=== PATIENT | male | born 1990 | race Caucasian/White ===

== ENCOUNTER → 2021-04-05 09:07 | Outpatient (CLI) | payer OTHER, SELFPAY | PROVIDERS: Referring Provider Physician Assistant; Visit Provider Physician Assistant | DX: Z11.52 Encounter for screening for COVID-19 (principal) ==

== ENCOUNTER 2022-05-01 08:00 | Outpatient (RCR) | payer OTHER, SELFPAY ==
--- NOTE | 2022-05-01 09:05 | BH.SGPN.GN ---
Behaviors/Verbalizations/Mental Status: [] Eye contact is good. Motor activity is appropriate. Appearance is casual. Speech is Appropriate. Mood is depressed/irritable. Affect is flat. Thoughts are linear and logical. No evidence of psychosis. Reviewed daily check in sheet and no reports of suicidal ideations or intent. Client Response/Progress/Benefit: [] Pt participated at times during the group discussion. Attentive. This was pt?s first day in [facility] and he briefly introduced him and his goals. States ? I had a pretty shitty summer? and entered [facility] to work on his ?depression?. His check-in was very brief however as noted above this was his first day in [facility]. Group was supportive and offered advice for his first day/week in the program. Benefited from group support, encouragement, and feedback. Will continue in [facility] to prevent decompensation, increase healthy coping, and improve functioning to return to work. Narrative Note: []
--- NOTE | 2022-05-01 10:05 | BH.SGPN.GN ---
Behaviors/Verbalizations/Mental Status: []Eye contact is good. Motor activity is appropriate. Appearance is casual. Speech is Appropriate. Mood is depressed and agitated. Affect is congruent. Thoughts are linear and logical. No evidence of psychosis. Client Response/Progress/Benefit: []Pt first day in IOP tx. He was an engaged participant in group discussions and remained attentive during psychoeducation, nodding as fellow participants shared. Participated with peers in experiential activity and provided some ideas to the group. Pt participated in an interactive discussion with peers in which they worked together to define what coping skills are. Pt shared that we often continue to engage in unhealthy means of coping because it becomes a habit. Group then identified unhealthy coping skills which included; lashing out, negative self-talk, isolating, substance abuse, avoidance, sleeping to escape, and distracting self with other?s problems. Shared struggling with using drugs to cope in the past. Psychoeducation on internal vs external coping skills. Benefited from increased awareness and education on the benefits of having both internal and external coping skills. Will continue in [facility] to promote healthy skill application, improve mood management, and prevent decompensation. Narrative Note: []
--- NOTE | 2022-05-01 12:07 | BH.COMM ---
Communication Note - Communication with Client Communication Note: Met with patient to complete initial paperwork. No significant changes since pre-admission screening. Completed [place] Suicide Screening. Moderate risk. Pt has hx of one prior suicide attempt, resulting in hospitalization approx. 7 years ago in which pt overdosed on heroine. Hx of prior high risk behaviors such as taking steroids. Reports current steroid use and is aware of health risks in doing so. Endorses passive thoughts of not caring if something happened to him or if he did not wake up, but not for the past 3 weeks. Denies any current plan or intent and reports his mother is a protective factor. Denies Hx of intentional self-harm. Pt denies hx of HI, plan or intent. Case discussed with Dr. Villafana with plan to admit to IOP level of care with dx of Bipolar 2 disorder F31.81
--- NOTE | 2022-05-02 08:55 | BH.SGPN.GN ---
Behaviors/Verbalizations/Mental Status: []Eye contact fair, casually dressed, motor activity appropriate, speech normal rate and tone, mood depressed and irritable, congruent affect, thoughts linear and intact, no evidence of delusions or hallucinations. Reviewed pt's symptom tracker, denies suicidal ideation, plan, or intent as of this date 05/02/22. Client Response/Progress/Benefit: []Pt responded well to session, attentive and nodding at times as other?s shared throughout. Pt reports feeling tired this morning and shared that he has been struggling with sleep recently which is an ongoing stressor. Current wins include not having any SI over the past three weeks, as well as recently discovering that his disability had been extended. Shared this has reduced stress about returning to work and noted not having any stressors today as a result. Pt appeared to benefit from reflecting on current positives. Recommended continued IOP tx to continue to improve healthy coping skills, reduce depressive sx, and further improve mood stability. Narrative Note: []
--- NOTE | 2022-05-02 11:05 | BH.SGPN.GN ---
Behaviors/Verbalizations/Mental Status: [] Client alert and oriented, casually dressed and appropriately groomed. Eye contact poor. Motor activity normal. Speech within normal limits. Affect flat, mood depressed. Head down on table at times. Thoughts linear and intact. no signs of delusions or hallucinations. Client Response/Progress/Benefit: [] Client passive participant AEB no contributions throughout group discussion. Client appeared more disengaged during group when compared to other group sessions. Client had head down at times throughout session. Group discussed the different boundary setting styles which included rigid, porous, and flexible. Minimal contributions in small group discussion of identifying the pros and cons of each boundary setting style. As a group discussed various strategies to set boundaries. Client did not share which boundary style she connects with the most. Seemed to benefit from increased awareness of how different boundary styles can impact mental health. Progress could be hindered by lack of participation in group. Client will continue IOP tx to challenged distortions, improve confidence, and prevent decompensation.
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
[2022-05-02 11:57] VITALS: BP 145/91; PULSE 75
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
--- NOTE | 2022-05-02 12:55 | BH.DR.ITP ---
Initial Treatment Plan Patient Information Visit Information: ADMISSION DATE: EXPECTED LOS: 4-6 weeks Problems/Symptoms Problem #1:: Mood instability with depression Symptom:: Sadness, biological disruption of sleep, hopelessness, worthlessness, anhedonia, passive thoughts of , recent passive suicidal ideation Problem #2:: Anxiety Symptom:: Worry, rumination
--- NOTE | 2022-05-03 09:00 | BH.SGPN.GN ---
Behaviors/Verbalizations/Mental Status: []Eye contact fair, casually dressed, motor activity appropriate, speech normal rate and tone, mood dysthymic, constricted affect, thoughts linear and intact, no evidence of delusions or hallucinations. Reviewed pt's symptom tracker, no indication of suicidal ideation or intent. Client Response/Progress/Benefit: [] Client respond well to session as evidenced by him listening attentively to others and openly sharing thoughts and feelings. Client identified mental positive as helping his mom with something she needed done. Client stated additional mental health positive as going to the gym this morning which he stated tends to improve his thoughts and mood. Client reported stressor is the thought of returning back to work because he finds it to be a toxic workplace. Client seemed to benefit from support from peers. Client to continue IOP to challenge distorted thoughts, increase use of healthy coping, and prevent decompensation.
--- NOTE | 2022-05-03 10:10 | BH.SGPN.GN ---
Behaviors/Verbalizations/Mental Status: []Pt alert and oriented, casually dressed and groomed. Eye contact good. Motor activity appropriate. Speech within normal limits. Affect constricted, mood irritable. Thoughts linear, logical, no signs of hallucinations or delusions. Client Response/Progress/Benefit: []Pt was an active participant AEB contributing to discussion, taking notes, and engaging in group activity. Connected with the topic of pitfalls and listened to group discussion on barriers that prevent from choosing a healthier path to mental wellness. Group worked together to identify examples of personal pitfalls which included; resentment/anger, shutting down, low motivation, making excuses, denial, distortions, and unhealthy coping. Pt identified self-doubt, not knowing what he wants, body dysphoria, and drug use as personal pitfalls that have inhibited progress in the past.? Pt benefited from group as pt learned to better identify potential barriers to improving mental health symptoms. Pt will continue IOP tx to improve mood stability, reduce negative thinking patterns, and improve daily functioning. Narrative Note: []
--- NOTE | 2022-05-03 11:12 | BH.SGPN.GN ---
Behaviors/Verbalizations/Mental Status: []Pt alert and oriented, casually dressed and groomed. Eye contact fair to good. Motor activity appropriate. Speech within normal limits. Affect congruent, mood agitated and depressed. Thoughts linear, logical, no signs of hallucinations or delusions. Client Response/Progress/Benefit: []Pt receptive of session, engaged throughout AEB pt actively listening and contributing to discussion when prompted, as well as taking notes.? Pt participated in the experiential activity and did well to communicate ideas with peers and manage emotions. Pt and group processed how the emotions and perspective of the group impacted the activity. Group worked together to identify different coping skills to help manage pitfalls. Pt identified pitfalls they struggle with such as self-doubt and all or nothing thinking. Pt plans to work on the pitfall of self-doubt by beginning to track his daily accomplishments. Benefited from identifying personal pitfalls and strategies to overcome these pitfalls. Will continue IOP tx to prevent decompensation, challenge distortions, and increase the use of healthy coping skills. Narrative Note: []
--- NOTE | 2022-05-08 09:00 | BH.SGPN.GN ---
Behaviors/Verbalizations/Mental Status: [] Eye contact is good. Motor activity is appropriate. Appearance is casual. Speech is Appropriate. Mood is depressed/irritable. Affect is full. Thoughts are linear and logical. No evidence of psychosis. Reviewed daily check in sheet and no reports of SI. Client Response/Progress/Benefit: [] Pt participated at times during group discussion. Distracted. Daily symptom tracker notes 2/5 for irritability and depression. Emotion for today is ?angry and defensive?. Mental health wins include preparing for an upcoming social event and reconnecting with an old friend. Discussed how these are beneficial to his mental health. Reports that he woke up at 4am this AM and could not get back to sleep. Stressed as this has been an ongoing issue for the past several months. When awake at 4am he begins to have negative thoughts which can lead to anger, frustration, and depression. ?It can ruin my whole day?. Group provided some feedback and suggestions as well as emphasized which was beneficial. Will continue in IOP to prevent decompensation, stabilize mood, and improve functioning to return to work Narrative Note: [] Behaviors/Verbalizations/Mental Status: [] Eye contact is good. Motor activity is appropriate. Appearance is casual. Speech is Appropriate. Mood is depressed/irritable. Affect is full. Thoughts are linear and logical. No evidence of psychosis. Reviewed daily check in sheet and no reports of SI. Client Response/Progress/Benefit: [] Pt participated at times during group discussion. Distracted. Daily symptom tracker notes 2/5 for irritability and depression. Emotion for today is ?angry and defensive?. Mental health wins include preparing for an upcoming social event and reconnecting with an old friend. Discussed how these are beneficial to his mental health. Reports that he woke up at 4am this AM and could not get back to sleep. Stressed as this has been an ongoing issue for the past several months. When awake at 4am he begins to have negative thoughts which can lead to anger, frustration, and depression. ?It can ruin my whole day?. Group provided some feedback and suggestions as well as emphasized which was beneficial. Will continue in IOP to prevent decompensation, stabilize mood, and improve functioning to return to work Narrative Note: []
--- NOTE | 2022-05-08 13:49 | BH.MDN_ITS ---
Multi-Disciplinary Note - Note 30-min Individual Time Started:: 11:30 Date: 05/08/22 Purpose of session/treatment goals addressed:: Met with patient to review current progress and symptoms. Used the session to identify treatment plan goals. Eye Contact:: Good Motor Activity:: Appropriate Appearance:: Casual Speech:: Appropriate Mood:: Depressed Affect:: Flat Thoughts:: Linear, Logical, No evidence of hallucinations/delusions noted Staff Interventions:: rapport building, treatment planning Client Response:: According to pt his depression has decreased since starting the IOP program. He and his GF are currently back together and he reports that things are going well. They has broken up over the summer which had contributed to his depression. During his depression he reported anhedonia, low energy, and being to worn out to care about things. With improved mood he has noticed an increase in anger, irritability, and anxiety because I'm caring about things again. He would like to focus on anger management noting that stressful environments such as work increase his anger and anxiety leading to bailing out of responsibilities. He remains on FMLA from work since 12/2021 due to his mental health and believes that getting his anger under control will help with his transition back to work. Other goals include stress management, anxiety reduction, and mood stability. Currently has limited coping skills. Only form of self-care with working out. Risks/Concerns:: no risks or concerns noted. Progress Toward Goals/Plan:: Progress noted per pt report. Consistent with IOP however limited engagement. Pt reports that if a group or topic doesn't resonate with him it has been a challenge to stay focused. Responds well to individual sessions. According to DSM-5 cross cutting scale he noted significant distress in not knowing what he wants out of life related to work, purpose, and future. This is something that he thinks about several times throughout the day and impacts his mood. He is unsure if he will return to his job citing several factors. We discussed a possible reduced schedule in the future and normalized possibility of finding other employment if he feels that is best decision. Pt was given task to begin to identify anger button and physiological signs of anger for next session. Will continue in IOP to prevent decompensation, increase d healthy coping, and improve functioning to return to work. Time Stopped:: 12:00
--- NOTE | 2022-05-08 13:49 | BH.MTP_ITS ---
Master Treatment Plan - Patient Information Program Physician:: Natalia Rush - Psychiatric Diagnoses Psychiatric Diagnoses:: 1. Bipolar 2 disorder (depression). 2. Generalized anxiety disorder Diagnosis Code(s):: F31.81 - Estimated LOS Estimated LOS (in weeks):: 6 Problem/Goal #1 - Problem/Goal #1 Stated Goal:: Client will increase mood stability and reduce depression, irritability, and passive thoughts of AEB self-report and reduction of scores on the depression, suicidal ideations, oskar, and anger domains of the DSM-5 cross cutting scales. Description of Barriers: Mental health stigma, long-standing anger mgmt issues, limited coping skills Functional Impact: Pt has been on FMLA due to mental health symptoms since 01/2022. - Objectives Objective #1 Stated Objective: Client will learn and utilize 2-3 healthy coping strategies to better manage depressive and mood symptoms. Interventions: Through individual and group counseling will teach client various coping strategies to increase mood stability. Client will learn various coping skills to manage his symptoms and give client tangible resources to use to regulate emotions. Therapist will use cognitive restructuring techniques and help client gain awareness of negative thoughts that reinforce depressive cycles Discharge Criteria: Able to identify and utilize 2-3 healthy coping strategies for mood management. Target Date: 06/12/22 Review Date: 05/23/22 Objective #2 Stated Objective: Client will identify 5 physical warning signs of anger and 5 ways to calm and manage anger Interventions: Through individual and group counseling will teach the client calming techniques as part of a tailored strategy for reducing chronic and acute physiological tension that accompanies the escalation of his/her angry feelings. Discharge Criteria: Able to identify physiological warning signs to anger, anger button, and 2-3 coping skills to manage anger in the moment. Target Date: 06/12/22 Review Date: 05/23/22 Problem/Goal #2 - Problem/Goal #2 Stated Goal:: Client will reduce overall frequency, intensity, and duration of anxiety to improve functioning AEB self-report and reduction in the anxiety domain of the DSM-5 cross-cutting scales. Description of Barriers: Mental health stigma, limited coping skills Functional Impact: Pt has been on FMLA due to mental health symptoms since 01/2022. - Objectives Objective #1 Stated Objective: Client will identify 2-3 cognitive distortions that lead to rumination and learn 2-3 ways to manage these thoughts to better manage anxiety as shown by reduced DSM-5 scores for anxiety. Interventions: Through individual and group counseling will provide education on the most common cognitive distortions and teach client the connection between thoughts, emotions, and feelings. Therapist will assist client in identifying, challenging, and replacing dysfunctional thoughts with positive, more realistic thoughts. Discharge Criteria: Able to identify 2-3 common cognitive distortions which impact pt's anxiety and 2-3 strategies to reframe and challenge these distortions. Target Date: 06/12/22 Review Date: 05/23/22 Objective #2 Stated Objective: Identify and implement 3-4 behavioral changes that could be made in workplace interactions to increase sense of confidence and competence in dealing with work responsibilities, stressors, irritability, and anxiety. Interventions: Through individual and group counseling will provide client with various strategies to clinical case manager conflict, apply assertive communication, and set healthy boundaries. Will develop a return to work plan to clinical case manager mental health struggles which may include returning to work on reduced schedule Discharge Criteria: Will have returned to work either on reduced or full-time schedule. Target Date: 06/12/22 Review Date: 05/23/22
--- NOTE | 2022-05-08 13:49 | BH.PSA ---
Source of Information - Presenting Problems/Circumstances Problems, Referral Source, Mental Status, Client: Pt was referred to [facility] by family due to decompensation since 12/2021. Mental health symptoms resulted in decreased functioning and inability to work. Psychiatric Presentation - Psych Issues & Need for Admission Psychiatric Issues:: Bipolar, Depression, anxiety, anger mgmt issues, passive thoughts of , panic attacks. Past Psychiatric History - MH Treatment Hx Treatment History: Just recently began counseling and psychiatric services since 12/2021. First hospitalization:: n/a Most recent hospitalization:: n/a Medication Trials:: Yes - refer to psych eval ECT Therapy:: No Age of first mental health symptoms: Pt reports depressive symptoms around the age of 11. Describe (age, circumstance, etc) any past hospitalizations: n/a Current providers for mental health treatment (counselor, psychiatrist, case finisher, etc.): Julio César Godwin- therapist, [facility]. Dr. Giuliano Rainey- PCP, [facility] [place] Development & Family of Origin - Childhood Significant Childhood Events: denies any significant childhood events. Denies any hx of abuse. - Family Who currently lives in your home?: Currently lives alone. Describe family composition:: Mother is alive and a very supportive person in pt's life. Pt's father is (cancer, 2019). Pt has one sister - Family History Family Hx of Psychiatric or AOD Problems: Bipolar- sister. Pt suspects many undiagnosed mental health conditions in the family as well as substance abuse issues. Ethnicity - Culture Do you identify yourself with any particular cultural, ethnic background, or community?: No - Sexuality Sexual Orientation: Heterosexual Spirituality - Mosque Do you currently identify with any organized rastafarian?: None - Beliefs Is there a particular form of support from this community you can use for your recovery?: No Mental Status - Memory Recent Memory: Fair Remote Memory: Fair - Concentration Concentration: Fair - Eye Contact Eye Contact: Good - Speech Speech: Soft - Thought Process Thought Process: Logical Insight: Fair Judgment: Fair Behavior: Agitated - Orientation Orientation: Time, Person, Place, Situation - Appearance Appearance: Appropriate - Mood Mood: Depressed, Irritable - Affect Affect: Flattened Suicide Assessment - Suicidal Ideation Have you ever felt like hurting yourself?: Yes Please explain:: Has had a mixture of passive thoughts of , survival ambivalence, and fleeting SI w/o plan or intent since 12/2021. Were you using ETOH/drugs at the time?: No Suicidal Intentional Rating Scale (SIRS): Suicidal thoughts (past) - Had an OD on heroin in 2014. Physician Notification: If Active suicidal thoughts/Will not contract for safety is checked, contact physician and document in the Physician Notification section below. Violent Behavior/Abuse History - Homicidal Ideation Do you have any homicidal thoughts? If so, explain:: No Is there a known potential victim? If yes, who:: No - Abuse Have you ever been abused?: No - Life Events Are there any other significant life events?: - Father- Cancer, 2019 Describe significant life events: Pt OD'd on Heroin in 2014 and needed to be resuscitated with Narcan. - Safety Do you ever feel threatened in your home? If yes, describe:: No Adult Social History - Age 19 to Present Describe your current support system:: Mother is primary support. Substance Use - Substance Substance Use Type: Alcohol, Heroin, Marijuana, Tobacco, Caffeine, Other - Steriods - Last Usage What is the date and situation you last used?: Steroids- has been micro-dosing for approximately 7 weeks. Marijuana- daily use, medical prescription. Alcohol- social, - IV Substance Use Do you have a history of IV use?: denies Leisure/Social Activities - Interests What do you enjoy or might be interested in learning about?: Pt reports that he would like to learn skills to better manage his mood, specifically anger Education & Occupational Histo - Education What is your level of education?: High School Do you have any learning disabilities?: No - Occupation List any current or past employment:: [employer]- [employer] - Service Have you ever been in the ?: No Legal History - Records Have you had any past legal charges?: No Do you have any current legal charges?: No Have you ever been incarcerated? If yes, describe:: No - Court Orders Have you had any past court orders for psychiatric treatment?: No Do you have a present court order for psychiatric treatment?: No Problem Checklist - Current Problem Areas Problem List: Depressed mood/sad, Anxiety, Anger/aggression, Impulsivity, Mood swings/hyperactivity, Substance use, Sleep problems - Pt reports that he wakes up often at 4am and can't return to sleep., Additional psychosocial stressors - Been off work due to mental health since 12/2021 Discharge Planning Needs - Anticipated Follow-Up Private Therapist/Psychiatrist:: Julio César Godwin- therapist, [facility]. Other (to be determined): Dr. Giuliano Rainey- PCP, [facility] [place] Family and Caregiver Contacts:: Dee Dee Allen- mother Release of Information Signed:: Yes Financial Processing Clerk's Assessment - Client's Needs What are the client's feelings about the program?: Pt is apprehensive about IOP and the group counseling aspect. He reports that if a group topic does not resonate or pertain to him its challenging to stay engaged. What are the client's goals?: Develop anger mgmt skills. Stabilize mood to return to work. Identify purpose What are the client's strengths?: focused, determined, hard-worker. 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 No previous psychiatric admissions. Referred to [facility] by family due to worsening mental health since 12/2021. Several triggers related to decompensation including relationship break-up and work stressors. Pt presented to [facility] in 12/2021 and was referred to outpatient treatment. Due to mental health pt has been on FMLA since 12/2020. Attends weekly counseling and is medication compliant however limited progress. Endorses poor sleep, poor appetite, low energy, low motivation, isolation, avoidant behaviors, hopelessness, worthlessness, and anhedonia. Frequent panic attacks. Denies active suicidal ideations, plan, or intent. No hx of attempts. Endorses passive thoughts of and survival ambivalence. Ruminations. Guarded at times during assessment regarding triggers to decompensation and hx of trauma. Several medication changes since 12/2021 with limited benefit. Denies HI or psychosis. Daily marijuana use. Steroid use. Family hx of Bipolar (sister). Treatment Plan Recommendations - Recommendations Guidelines: Special needs identified to be included in the development of an individualized treatment plan regarding past psychiatric history and treatment, developmental events, family relationships/events/culture, past and/or current educational, occupational, social, and residential experience, and legal status. Recommendations:: Due to mental health impacting functioning, limited benefit from traditional outpatient, and passive thoughts of recommended IOP level of care.
--- NOTE | 2022-05-09 09:00 | BH.SGPN.GN ---
Behaviors/Verbalizations/Mental Status: [] Eye contact is good. Motor activity is appropriate. Appearance is casual. Speech is Appropriate. Mood is euthymic. Affect is full. Thoughts are linear and logical. No evidence of psychosis. Reviewed daily check in sheet and no reports of SI. Client Response/Progress/Benefit: [] pt was an active participant in group discussions. Attentive. Provided appropriate feedback. Daily symptom tracker notes 08/02 for depression, anxiety, and irritability. Mental health win was improved sleep last evening. ?I?m in a better mood than yesterday?. He shared how poor sleep and negative automatic thoughts yesterday impacted his mood and behaviors. Group processed his bedtime routine yesterday in hopes of identifying a skill or behavior that could have improved sleep. Denies any significant stressors today. Benefited from group support and encouragement. Will continue in IOP to prevent decompensation, increase healthy coping, and improve functioning to return to work. Narrative Note: []
--- NOTE | 2022-05-09 10:05 | BH.SGPN.GN ---
Behaviors/Verbalizations/Mental Status: [] Client alert and oriented, neatly dressed and groomed. Eye contact good. Motor activity appropriate. Speech within normal limits. Affect constricted, mood euthymic. Thoughts linear, logical, no signs of hallucinations or delusions. Client Response/Progress/Benefit: [] Client was an active participant in group discussions. Attentive during psychoeducation on 4 types of conflict styles (Competing, Collaborating, Avoiding, and Accommodating). Worked with group to define conflict and identify how conflict is helpful. With peers identified barriers to addressing or managing conflict which included: wanting to avoid difficult feelings/emotions, lack of communication skills, and cognitive distortions. Client believes they use the competing style the most. Client shared this style leads to them to get burnt out a lot emotionally and having a short patience. Benefited from group due to increase insight and awareness of benefits to conflict, conflict styles, and obstacles to managing conflict. Will continue in IOP to prevent decompensation, gain healthier core beliefs, and increase positive coping skills. Narrative Note: []
--- NOTE | 2022-05-09 11:10 | BH.SGPN.GN ---
Behaviors/Verbalizations/Mental Status: [] Client alert and oriented, neatly dressed and groomed. Eye contact good. Motor activity appropriate. Speech within normal limits. Affect congruent, mood euthymic. Thoughts linear, logical, no signs of hallucinations or delusions. Client Response/Progress/Benefit: [] Client engaged in session AEB contributing to discussion and engaging in activity. Client did well to review current conflict style and its impact on mental health. Attentive and taking notes during discussion on strategies for more effectively managing conflict in personal life. Client participated in activity and did well to be assertive and collaborating. Client given handout on fair fighting rules and identified that they want to work on minimizing the amount of stonewalling they do. Appeared to benefit from gaining strategies to help client better manage conflict. Will continue IOP tx to reduce negative thinking patterns and prevent decompensation. Narrative Note: []
--- NOTE | 2022-05-10 09:05 | BH.SGPN.GN ---
Behaviors/Verbalizations/Mental Status: [] Eye contact is good. Motor activity is appropriate. Appearance is casual. Speech is Appropriate. Mood is euthymic. Affect is full. Thoughts are linear and logical. No evidence of psychosis. Reviewed daily check in sheet and no reports of SI. Client Response/Progress/Benefit: [] - pt was an active participant in group discussions. Attentive. Provided appropriate feedback. Daily symptom tracker notes no significant distress. Mental health win is more based on the future as he is spending time with support this evening. Reports improved sleep the past 2 days stating, ?I slept till 7am?. Insight that he ?kept himself busy? throughout the day which may have resulted in improved quality of sleep. Overall, he notes improved ability to manage emotions in the past 2 days. Benefited from group support, encouragement, and feedback. Will continue in IOP to prevent decompensation, stabilize mood, and improve functioning to return to work. Narrative Note: []
--- NOTE | 2022-05-10 10:05 | BH.SGPN.GN ---
Behaviors/Verbalizations/Mental Status: [] Client alert and oriented, casually dressed and groomed. Eye contact good. Motor activity appropriate. Speech within normal limits. Affect congruent, mood euthymic. Thoughts linear, logical, no signs of hallucinations or delusions. Client Response/Progress/Benefit: [] Client was an active participant in group discussions and activity. Attentive during psychoeducation. Client along with peers were able to identify several negatives on the picture given to the group. Client and peers also identified positives in the picture and made the connect that finding positives is much more difficult. Client discussed that it was very easy for him to pick out the negatives due to picture depicting the opposite of the expectations he has on himself. Interactive discussion on the definition of perspective, how perspective is formed, and why perspective is important in treatment. Client along with peers also identified that perspective can either motivate and encourage treatment or be a barrier to receiving help. Client along with group members came up with benefits of having a hopeful perspective for their mental health, which included feeling more encouraged, feeling less depressed, and increased motivation. Will continue in IOP to decrease irritability, increase overall functioning and increase self-confidence. Narrative Note: []
--- NOTE | 2022-05-10 11:05 | BH.SGPN.GN ---
Behaviors/Verbalizations/Mental Status: [] Client alert and oriented, casually dressed and groomed. Eye contact good. Motor activity appropriate. Speech within normal limits. Affect congruent, mood euthymic. Thoughts linear, logical, no signs of hallucinations or delusions Client Response/Progress/Benefit: [ ] Client was attentive and contributed in small and larger group discussion. Client completed strengths exploration worksheet and identified personal strengths to include: honest, funny and ambitious. Client able to acknowledge how these strengths are helping him and can continue to help client in his mental health journey. Shared wanting to focus on learning to forgive. Benefited from identifying personal strengths and strategies for enhancing use of identified strengths. Client to continue IOP tx to promote use of healthy coping skills, reduce irritability, and reduce negative thinking patterns. Narrative Note: []
--- NOTE | 2022-05-15 10:10 | BH.SGPN.GN ---
Behaviors/Verbalizations/Mental Status: []Client alert and oriented, casually dressed and groomed. Eye contact fair to good. Motor activity appropriate. Speech within normal limits. Affect congruent, mood dysthymic, agitated. Thoughts linear, logical, no signs of hallucinations or delusions. Client Response/Progress/Benefit: [] Client receptive to session AEB listening and contributing throughout discussion, as well as taking notes. Worked with group to brainstorm the positive and negative aspects of stress on physical and mental health. Group did well to identify the benefits of stress as well as the impact of distress on performance and mental health. Client identified their personal top stressors as: his job, job [employer], and going to the gym. Client reports when the stress overflows client reacts with decreased sleep, irritability, and lashing out. Client seemed to benefit from increased awareness of current stressors and impact stress has on mental health. Recommended to continue IOP tx to stabilize moods, improve confidence, and prevent decompensation. Narrative Note: []
--- NOTE | 2022-05-15 11:10 | BH.SGPN.GN ---
Behaviors/Verbalizations/Mental Status: []Pt alert and oriented, casually dressed and groomed. Eye contact good. Motor activity appropriate. Speech within normal limits. Affect constricted, mood dysthymic and irritable. Thoughts linear, logical, no signs of hallucinations or delusions. Client Response/Progress/Benefit: []Pt participated at times during group discussions. Attentive during psychoeducation on the 4 A's of Coping with Stress (Avoid, Alter, Adapt, Accept). Participated in experiential activity in which group members had to utilize stress management skills in the moment, appearing less distracted and more engaged in discussion throughout. Pt agreed with peers that their cooperation and communication was a helpful resource and pt worked well with peers to problem-solve the stressors presented. Pt engaged in review of the 4 A?s and picked wanting to work on adapting his mindset about struggling with not seeing as much progress at the gym as he would have liked. Benefited from processing in the moment stress management strategies and identifying new ways to cope with stress. Will continue in IOP to reduce intensity of symptoms, improve emotion regulation skills, as well as prevent decompensation. Narrative Note: []
--- NOTE | 2022-05-16 10:10 | BH.SGPN.GN ---
Behaviors/Verbalizations/Mental Status: [] Eye contact is good. Motor activity is appropriate. Appearance is casual. Speech is Appropriate. Mood is depressed. Affect is flat. Thoughts are linear and logical. No evidence of psychosis. Client Response/Progress/Benefit: [] Pt participated when prompted. Attentive during psychoeducation AEB note-taking. Attentive during interactive discussion amongst peers on the definition and examples of crisis. Attentive as peers identified unhealthy responses to crisis which included; substance use, avoidance, isolation, sleeping, risky behaviors, retail therapy, over-eating, etc. Pt identified her hnas signs to crisis which included decreased motivation, lack of energy, and urges to use unhealthy coping. Benefited from increased of crisis and personal warning signs. Will continue in IOP to prevent decompensation/re-admission, decrease intrusive thoughts, and stabilize mood. Narrative Note: []
--- NOTE | 2022-05-16 11:10 | BH.SGPN.GN ---
Behaviors/Verbalizations/Mental Status: []Pt alert and oriented, casually dressed and appropriately groomed. Eye contact fair. Motor activity appropriate. Speech within normal limits. Affect constricted, mood dysthymic. Thoughts linear, logical, no signs of hallucinations or delusions. Client Response/Progress/Benefit: []Pt appeared distracted at times throughout session AEB pt scrolling on cellphone during discussions. Pt made comment in small group he didn't want to be here, either. Pt identified personal warning signs for crisis and gained further awareness of earliest warning signs. Pt created a crisis action plan to help better manage warning signs for crisis. Pt able to create action plan for warning sign of urge to smoke/drugs. Pt's action plan included: find sober activity, find sober friends, go to gym, and approve of self-image. Pt appeared to benefit from creating a crisis action plan and increasing self-awareness. Pt will continue IOP tx to challenge negative thoughts, increase confidence and prevent decompensation.
--- NOTE | 2022-05-16 11:50 | BH.MDN ---
Multi-Disciplinary Note - Note 45-min Individual Time Started:: 09:15 Date: 05/16/22 Purpose of session/treatment goals addressed:: Met with patient to review current symptoms and progress in IOP. Addressed treatment goal 1, obj 2. Eye Contact:: Good Motor Activity:: Appropriate Appearance:: Casual Speech:: Appropriate Mood:: Irritable, Depressed Affect:: Congruent Thoughts:: Linear, Logical, No evidence of hallucinations/delusions noted Staff Interventions:: psychoeducation on: - anger mgmt, mindfulness skills, taught coping skills Client Response:: Pt responded well to session. Cooperative. Reports being more irritability and down this week. No specific triggers. He mentioned that he completed FMLA/long-term disability paperwork with his PCP which extends his leave till the new year. He states that he has seen improvement in the past few weeks however I need to see a couple months of stability before I risk going back. For the first part of the session we identified his physiological warning signs to anger which included; feeling jittery, clenching fists, rubbing fingers, headache, restlessness, etc. We also identified where on the anger continuum (0-10) those warning signs occur and reviewed strategies to utilize at lower levels to ensure he does not reach rage or level 10. Responded well to this. Strategies we identified included distraction, breathing, reframing thoughts, and mindfulness. We worked to identify 'anger buttons' which included; people making him feel inferior, forgetting things, when others don't listen, and when others don't take him seriously. Risks/Concerns:: no risks or concerns noted. Progress Toward Goals/Plan:: Progress noted per pt report. States improved mood in the past 2 weeks. Open and receptive to education on anger mgmt. Consistent with IOP. His engagement varies however always does appear to be attentive in groups. Will continue in IOP to prevent decompensation, increase healthy coping, and improve functioning. Time Stopped:: 10:00
--- NOTE | 2022-05-16 12:10 | PCM.BH.PN ---
Progress Note Progress Note: Patient is a 31-year-old male with a history of bipolar disorder, anxiety, body dysmorphic disorder and substance use disorder. The patient is seen in follow-up at the [facility] behavioral health IOP program and I last saw the patient 2 weeks ago. The patient's Abilify at that time was reduced to 10 mg as he felt it was making him too tired and feeling groggy. Patient states he feels somewhat better. He has also started his Lamictal but he only started it 2 days ago because he had trouble getting the prescription. The patient has moments where he gets angry and breaks things and is damaged a door in the past. He gets angry if he loses his keys or his wallet. He is still taking anabolic steroids and has no interest in stopping them despite the fact that we have discussed with him that this could be contributing to his anger issues. Patient does not feel that the Antivert Bolick steroids contributed to his anger. He has tried to decrease his caffeine and caffeine intake and is now down to 2 energy drinks daily that he takes before he works out 5 times a week. He still feels some fatigue during the day. He still does not keep regular sleep-wake hours and often plays video games in the middle the night. He is hoping that the Lamictal helps with his sleep. He is still very stressed by his job and does not like it and is filing for disability. He may look for a new job soon. His concentration is still somewhat decreased but his anxiety is better. He denies worthlessness, hopelessness, thoughts of , suicidal ideation, plan for suicide, homicidal ideation, thoughts of self-harm, symptoms of oskar, hallucinations or delusions. Current Psychiatric Medications: [] Abilify 10 mg p.o. daily (decreased from 15 mg 2 weeks ago); Lamictal 25 mg p.o. daily started by his primary care doctor 2 days ago. Mental Status Examination: [] The patient is a 31-year-old male who appears fit for stated age and is casually dressed and groomed with good hygiene. He has tattoos on his upper extremities bilaterally and his lip and ears are pierced. He is ambulatory with a normal gait and is alert and oriented to person place and time. He has no psychomotor agitation or retardation. He is cooperative during the evaluation but is unwilling to take an much of the recommendations he hears. Eye contact is good and speech is normal rate and rhythm and fluent with no pressure. Mood is depressed. Affect is constricted. Thought process is goal-directed and organized. Thought content: There is no evidence of passive or active suicidal ideation, thoughts of , homicidal ideation, hallucinations, delusions or symptoms of oskar. The patient is adamant that he will continue to use anabolic steroids. Reality testing is intact. Impulsivity is moderate. Insight is limited. Judgment is intact. Diagnoses: [] 1. Bipolar 2 disorder (depression currently) 2. Generalized anxiety disorder 3. Body dysmorphic disorder 4. Primary support and work issues 5. 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 Nicotine and marijuana use disorder Plan: [] The patient will continue the IOP program at [facility] as the structure, support, education and group therapy will hopefully prevent worsening of the patient's symptoms which might require hospitalization. He felt safe during the interview and if it anytime he does not feel safe he will let us know or go to the emergency room. The patient was again informed about the need to keep a regular sleep-wake cycle. Again we discussed the risks of using anabolic steroids but the patient is adamant that he will not stop using them. The patient agrees to try to decrease the use of energy drinks and marijuana more. No medication changes were made today. He will continue to follow-up with his outpatient providers and I will see the patient in follow-up in 2 to 3 weeks.
--- NOTE | 2022-05-23 09:05 | BH.SGPN.GN ---
Behaviors/Verbalizations/Mental Status: [] Eye contact is good. Motor activity is appropriate. Appearance is casual. Speech is Appropriate. Mood is depressed/irritable. Affect is flat. Thoughts are linear and logical. No evidence of psychosis. Reviewed daily check in sheet and no reports of suicidal ideations or intent. Client Response/Progress/Benefit: [] - Pt participated at times during group discussions. Attentive. Daily symptom tracker notes 2/5 for anxiety and irritability. Emotion for today is ?grumpy?. Mental health wins is ?getting 9 hours of sleep?. Shared that he had limited sleep the day before and how this impacted his mental health. Completed tasks around the house. Utilized anger mgmt. skills. Stressor continues to be returning to work and his future. Benefited from group support, encouragement, and feedback. Will continue in IOP to prevent decompensation, improve functioning, and increase healthy coping. Narrative Note: []
--- NOTE | 2022-05-23 11:15 | BH.SGPN.GN ---
Behaviors/Verbalizations/Mental Status: []Pt alert and oriented, casually dressed and groomed. Eye contact fair. Motor activity appropriate. Speech within normal limits. Affect flat, mood irritable and dysthymic. Thoughts linear, logical, no signs of hallucinations or delusions Client Response/Progress/Benefit: []Pt responded well to session, engaged in the experiential activity and attentive throughout group processing. Pt reported fear of failure has kept pt from switching jobs. Pt completed fear of failure worksheet and was able to identify thoughts and behaviors that reinforce personal fear of failure including negative beliefs of self, guilt, and past experiences. Pt participated in small group discussion regarding strategies to overcome fear of failure. Identified wanting to work on the evidence against his negative thoughts and continuing his medications. Appeared to benefit from increased knowledge of strategies to combat fear of failure and gaining self-awareness. Pt will continue IOP tx to improve mood stability, increase self-esteem, and reduce irritability further. Narrative Note: []
--- NOTE | 2022-05-23 13:34 | BH.MDN ---
Multi-Disciplinary Note - Note 45-min Individual Time Started:: 10:15 Date: 05/23/22 Purpose of session/treatment goals addressed:: Met with patient to review current symptoms and progress in IOP. Addressed treatment goal 1, obj 2 and treatment goal 2, obj 2. Eye Contact:: Good Motor Activity:: Appropriate Appearance:: Casual Speech:: Appropriate Mood:: Irritable, Depressed Affect:: Congruent Thoughts:: Linear, Logical, No evidence of hallucinations/delusions noted Staff Interventions:: discharge planning, reviewed DSM-5 Client Response:: Pt continues to report sleep struggles which have been a longstanding issues that impacts mood, motivation, and overall functioning. He wakes up at 4am most mornings and struggles to fall back asleep. Through discussion it does not seem this is based in anxiety or stress. He is reluctant to start a sleep medication due to past experiences. He was encouraged to discuss this with his PCP as perhaps a sleep study or unknown sleep disorder could be causing him to wake. We reviewed the anger management discussion from last session. Pt utilized the psychoeducation and skills yesterday during an anger episode and was able to identify benefits. He identified his anger level, utilizing calming strategies, and was able to return to stressful chore with more clarity and calm. Pt has also been thinking extensively about his career and it appears that his support as well as himself believes that current work environment is not beneficial for his mental health. He is open to looking intro alternative jobs with lower stress. We also reviewed his 3 week DSM outcome scores. Risks/Concerns:: no risks or concerns noted Progress Toward Goals/Plan:: Progress noted per pt report. Consistent with [facility] level of care, however limited engagement in groups. Outcomes indicate an overall 31% reduction in symptoms. Outcomes show a 40% reduction in the depression domain, 28% reduction in the oskar domain, a 20% reduction in the anxiety domain, and 71% reduction in the OCD domain. Pt also denies any suicidal ideations in the past 2 weeks which is 2 point reduction from admission. We discussed progress with plan to discharge in 2 weeks. Pt was given referral to [place] [id number] for follow up for psychiatry. Will continue in IOP to prevent decompensation, increase healthy coping, and improve functioning.
--- NOTE | 2022-05-23 15:56 | BH.MTP_ITS ---
Treatment Plan Review Date of Admission:: 05/01/22 Date of Treatment Plan Review:: 05/23/22 Admitting Diagnoses:: 1. Bipolar 2 disorder (depression). 2. Generalized anxiety disorder. 2-1/2. Body dysmorphic disorder Current Diagnoses:: 1. Bipolar 2 disorder (depression currently). 2. Generalized anxiety disorder. 3. Body dysmorphic disorder Patient's Response to Treatment:: Pt has been consistent with attendance. Engaged in individual counseling. Attentive in group counseling however limited engagement. Pt continued struggled with sleep can impact his ability to engage and be motivated in the AM. He does contribute when prompted. Status of Current Problems and Symptoms: Outcomes indicate an overall 31% reduction in symptoms. Outcomes show a 40% reduction in the depression domain, 28% reduction in the oskar domain, a 20% reduction in the anxiety domain, and 71% reduction in the OCD domain. Pt also denies any suicidal ideations in the past 2 weeks which is 2 point reduction from admission. No change in the anger domain. We discussed progress with plan to discharge in 2 weeks Problem #1 Problem Name:: Mood instability Status of Goals:: Pt has showed a reduction in scores in the depression, oskar, and SI domains since admission. His scores on the anger domain have remained the same. Pt has completed Obj1 which is identifying psychological signs of anger and calming skills for anger. He has also used this outside of program and seen benefits. Progress on obj2 as he reports improve coping strategies and reduction mood overall. Team Recommendations:: maintain current goals and plan. Pt is learning healthy coping strategies however is still early in utilizing these skills consistently and effectively. His anger continues to be problematic per his report. Problem #2 Problem Name:: Aniety Status of Goals:: According to outcomes pt has shown a 20% reduction on the anxiety domain since admission. Obj1-He has attended the cognitive distortion psychoeducational groups however we have not focused on them in individual sessions. Obj2- Identifying obstacles and concerns regarding returning to work has been discussed several times during individual sessions. Pt is still in the contemplation stage regarding whether he will return to job he is on FMLA. Impr glynn confidence since starting IOP due to decreased symptoms however he is concerned that if he returns his stress and anger will result in failure. This requires continued treatment. Team Recommendations:: Maintain current goals and plan.
--- NOTE | 2022-05-25 09:05 | BH.SGPN.GN ---
Behaviors/Verbalizations/Mental Status: []Eye contact good, casually dressed, motor activity appropriate, speech normal rate and tone, mood euthymic, flat affect, thoughts linear and intact, no evidence of delusions or hallucinations. Reviewed pt's symptom tracker pt denies any SI plan, or intent as of this date 05/25/22. Client Response/Progress/Benefit: [] Pt responded well to session, quiet, but participating when prompted. Pt reports feeling excited this morning as pt is looking forward to a fun Hall. Pt shared he and his girlfriend have been planning their outfit and pt is happy to be looking forward to something again. Pt was brief with his check-in, so he did not elaborate anymore on positives. Pt continues to be stressed about his work leave and short-term disability and pt feels frustrated with his employer. Pt processed his emotions by venting to the group which pt appeared to benefit from. Pt will continue IOP tx to promote mood stability, increase emotional regulation skills, and reduce negative thinking. Narrative Note: []
--- NOTE | 2022-05-25 11:10 | BH.SGPN.GN ---
Behaviors/Verbalizations/Mental Status: []Pt alert and oriented, casually dressed and groomed. Eye contact fair. Motor activity appropriate. Speech within normal limits. Affect constricted, mood depressed. Thoughts linear, logical, no signs of hallucinations or delusions. Client Response/Progress/Benefit: []Pt was disengaged at times AEB pt making comments he didn't want to be here and not engaging in discussion. At times appeared attentive during psychoeducation on the Zones of Change which included the comfort zone, learning zone, and danger zone. Pt listened to peers interactive discussion regarding behaviors, thoughts, and feelings associated with each zone. Participated in group activity in which they developed a plan to take action on something they wished to change. Pt chose to take action on negative thinking in which pt identified a SMART goal is reflect on day to give evidence this thoughts aren't true. Identified supports that pt needed as therapy and his loved ones. Benefited from increased self-aware of zones of change and developing an action plan. Will continue in IOP to increase consistent use of healthy skills, challenge distortions, and prevent decompensation.
== END 2022-05-28 23:59 ==
LOC: BHIOP 08:00
PROVIDERS: Visit Provider Psychiatry & Neurology Psychiatry
DX: F31.81 Bipolar II disorder (principal); F41.1 Generalized anxiety disorder; F45.22 Body dysmorphic disorder
CPT/HCPCS: S9480; 90832; 90834; 90853

== ENCOUNTER 2022-05-29 08:09 | Outpatient (RCR) | payer OTHER, SELFPAY ==
[2022-05-29 00:40] VITALS: BP 145/91; PULSE 75
--- NOTE | 2022-05-30 10:08 | BH.SGPN.GN ---
Behaviors/Verbalizations/Mental Status: []Client alert and oriented, casually dressed and groomed. Eye contact fair to good. Motor activity appropriate. Speech within normal limits, quiet. Affect constricted, mood dysthymic. Thoughts linear, logical, no signs of hallucinations or delusions. Client Response/Progress/Benefit: []Client responded well to session AEB taking notes and listening attentively to others. Client attentive during group discussion on examples of benefits of having social support. Client also listening throughout group discussion regarding the different kinds of supports in our safety net and the things that weaken or prevent us from using our supports. Client identified agreeing that past negative experiences can become something that may weaken one?s support net. Client participated in experiential activity illustrating the importance of having multiple social supports. Client provided supportive feedback and problem solving throughout group activity. Client attentive and nodding during group processing of the activity. Client appeared to benefit from increased knowledge of the benefits of social support and greater self-awareness. Will continue IOP treatment to continue increasing consistent use of skills, improve healthy mood management skills, and improve overall functioning. Narrative Note: []
--- NOTE | 2022-05-30 10:16 | BH.MDN_ITS ---
Multi-Disciplinary Note - Note 30-min Individual Time Started:: 09:30 Date: 05/30/22 Purpose of session/treatment goals addressed:: Reviewed progress and current symptoms. Eye Contact:: Good Motor Activity:: Appropriate Appearance:: Casual Speech:: Appropriate Mood:: Euthymic Affect:: Full Thoughts:: Logical, No evidence of hallucinations/delusions noted Staff Interventions:: discharge planning, other - reviewed anger mgmt strategies discussed. Client Response:: Met with pt to discuss progress and current symptoms. Pt reports that he has been doing real well. Believes that he is managing his emotions well. Declines any significant distress. Reports that depression, anger, and anxiety have been stable. Aside from long-standing sleep struggles he has shown consistent stability for the past 2 weeks. He encountered acute stressors yesterday which could have led to decompensation however he was able to manage well. Increased confidence in his ability to manage his emotions. Utilizing anger mgmt strategies effectively. Risks/Concerns:: No risks or concerns noted. Progress Toward Goals/Plan:: We had a discussion regarding his progress and stability and agreed that he no longer met criteria for IOP level of care. Plan to discharge on 06/01/22. Reviewed treatment plan goals. Able to identify physical warning signs of anger and strategies to cope, able to identify c ognitive distortions frequently used (absolute thinking, shoulds/musts), and is able to identify healthy coping skills to manage emotions. We did not complete goal regarding Identifying and implementing 3-4 behavioral changes that could be made in workplace interactions to increase sense of confidence and competence in dealing with work responsibilities. Pt met with PCP with plan to extend FMLA. Pt will work with his outpatient therapist on transitioning back to work or deciding to seek employment elsewhere. Pt reports that while he feels better he does not want to dougherty returning to work for fear of decompensation. Pt has medication mgmt appointment with Dr. Bell on 06/11/22 and with his therapist on 06/20/22. Plan to discharge on 06/01/22 Time Stopped:: 10:00
--- NOTE | 2022-05-30 11:05 | BH.SGPN.GN ---
Behaviors/Verbalizations/Mental Status: []Pt alert and oriented, casually dressed and groomed. Eye contact good. Motor activity appropriate. Speech within normal limits. Affect flat, mood irritable. Thoughts linear, logical, no signs of hallucinations or delusions. Client Response/Progress/Benefit: []Pt was participated throughout AEB contributing to discussion in small group and taking notes.? Pt provided input during discussion on the types of support our supports can provide. Pt able to identify current support system and barriers that get in the way of using supports by drawing out their own support net. Personal barriers included low self-esteem and boundaries being disrespected. Pt reported after identifying what type of supports they receive; they gained awareness that they could benefit from more emotional supports. Pt identified steps to achieve this by reaching out to his healthy supports and engaging in more hobbies. Pt seemed to benefit from identifying the type of support pt needs to work on improving. Pt recommended to continue IOP tx to promote mood stability and increase use of healthy coping skills. Narrative Note: []
--- NOTE | 2022-06-01 09:10 | BH.SGPN.GN ---
Behaviors/Verbalizations/Mental Status: [] Eye contact is poor. Motor activity is appropriate. Appearance is casual. Speech is Appropriate. Mood is euthymic. Affect is congruent. Thoughts are linear and logical. No evidence of psychosis. Reviewed daily check in sheet and no reports of suicidal ideations or intent. Client Response/Progress/Benefit: [] Pt participated at times during the group discussion. Attentive. Emotion for today is ruddy. Daily symptom tracker notes 08/02 for depression and anxiety. Mental health wins is I completed this group program. Shared that today will be his last day in [facility]. The topic that resonated the most to him was cognitive distortions and challenging negative thoughts. He did not elaborate much this AM however was more engaged than usual in group discussions. Beneifited from group support, encouragement, and feedback. Will be discharged from [facility] today. Narrative Note: []
--- NOTE | 2022-06-01 10:08 | BH.SGPN.GN ---
Behaviors/Verbalizations/Mental Status: []Pt alert and oriented, casually dressed and appropriately groomed. Eye contact good. Motor activity appropriate. Speech within normal limits. Affect constricted, mood dysthymic. Thoughts linear, logical, no signs of hallucinations or delusions. Client Response/Progress/Benefit: []Pt was an engaged participant AEB providing input when prompted, listening to others, and taking notes. Participated in interactive group discussion on internal and external barriers to mental health progress. Pt described current reality as running from a storm but having the storm behind him. Reported desired reality is no longer seeing the storm and viewing it as just dark clouds now. Client shared personal barriers to desired realty include: lack of confidence, intrusive thinking, and negativity. Benefited from increased awareness of current barriers to progress as well as current/desired realities. Pt will d/c from IOP on this date and continue with outpatient tx to maintain gains, increase consistent use of healthy coping, and prevent decompensation. Narrative Note: []
--- NOTE | 2022-06-01 10:41 | BH.DS_ITS ---
Discharge Summary - Demographics Date of Admission:: 05/01/22 Discharge Date: 06/01/22 Presenting Problems at Admission:: Pt is a 31 y/o male with hx of Bipolar 2. No previous psychiatric admissions. Referred to IOP by family due to worsening mental health since 12/2021. Several triggers related to decompensation including relationship break-up and work stressors. Pt presented to [facility] in 12/2021 and was referred to outpatient treatment. Due to mental health pt has been on FMLA since 12/2020. Attends weekly counseling and is medication compliant however limited progress. Endorses poor sleep, poor appetite, low energy, low motivation, isolation, avoidant behaviors, hopelessness, worthlessness, and anhedonia. Frequent panic attacks. Denies active suicidal ideations, plan, or intent. No hx of attempts. Endorses passive thoughts of and survival ambivalence. Ruminations. Guarded at times during assessment regarding triggers to decompensation and hx of trauma. Several medication changes since 12/2021 with limited benefit. Denies HI or psychosis. Daily marijuana use. Steroid use. Family hx of Bipolar (sister). Discharge Diagnoses:: 1. Bipolar 2 disorder (depression currently) F31.81. 2. Generalized anxiety disorder. 3. Body dysmorphic disorder Reason for Discharge:: No longer meets criteria for [facility] level of care. - Treatment Progress During Treatment & Response: Reviewed treatment plan goals. Able to identify physical warning signs of anger and strategies to cope, able to identify cognitive distortions frequently used (absolute thinking, shoulds/musts), and is able to identify healthy coping skills to manage emotions. We did not complete goal regarding Identifying and implementing 3-4 behavioral changes that could be made in workplace interactions to increase sense of confidence and competence in dealing with work responsibilities. According to DSM-5 outcome scores pt had a 40% reduction in the depression domain, 50% reduction in anger domain, 57% reduction in anxiety domain, and 86% reduction in repetitive thoughts/behaviors. Overall pt showed a 51% reduction in symptoms. Issues Still to be Addressed:: Pt met with PCP with plan to extend FMLA. Pt will work with his outpatient therapist on transitioning back to work or deciding to seek employment elsewhere. Pt reports that while he feels better he does not want to dougherty returning to work for fear of decompensation. Will also benefit from continued treatment for anger mgmt, depression, anxiety, and erratic moods. Discharge Recommendations/Instructions:: Pt has medication mgmt appointment with Dr. Bell on 06/11/22 and with his therapist (Julio César Godwin at [facility]) on 06/20/22. During IOP pt made the decision to fire his outpatient psychiatrist. He was given referral to [facility] in [place]. He agreed to complete their online new patient form (can only be done by patient). Discharge Handout: Complete Discharge Handout with client on aftercare options and continuity of care.
--- NOTE | 2022-06-01 10:49 | BH.AFTERPLAN ---
Aftercare Plan - Demographics Treatment End Date:: 06/01/22 Psychiatrist:: Natalia Bean Psychiatrist Office #:: [phone] [facility]/IOP Therapist:: Alban Rodrigues Therapist Phone #:: [phone] - Plan Details Progress/Aftercare Plan Details:: Pt has medication mgmt appointment with Dr. Bell on 06/11/22 and with his therapist (Julio C[facility]ar [facility] at [facility]) on 06/20/22. He is also agreeable to start [facility] aftercare program. Strategies for Success:: Continue with individual counseling for depression, anxiety, and anger mgmt. Review and practice coping/calming skills on consistent basis. - Appointments Appointments/Referrals to Other Services:: Referred to [address] psychiatrist and medication management. - Medications Home Medications: Home Medications aripiprazole 10 mg tablet (Abilify) 10 mg PO QHS 30 days #30 tabs 05/02/22 lamotrigine 25 mg tablet (Lamictal) 25 mg PO DAILY 05/02/22
--- NOTE | 2022-06-01 11:10 | BH.SGPN.GN ---
Behaviors/Verbalizations/Mental Status: []Pt alert and oriented, neatly dressed and groomed. Eye contact good. Motor activity appropriate. Speech within normal limits. Affect constricted, mood euthymic. Thoughts linear, logical, no signs of hallucinations or delusions. Client Response/Progress/Benefit: []Pt passively participating during activity, encouraging peers, and contributed as group brainstormed ideas on how to cope with internal barriers that keep pts stuck from moving towards goals. Able to identify barriers to desired reality. Identified barriers to current reality to include negative thinking and fear of being ?okay?. Pt wants to work on overcoming the barrier of fearing being ?okay? by continuing to reflect on the progress he has made and remind himself that stability is a good thing. Benefited from group by identifying obstacles and solutions to desired reality.? Pt will discharge from IOP tx today as pt has accomplished his tx goals and no longer meets criteria for IOP level of care. Narrative Note: []
== END 2022-06-01 13:20 | disposition home or self-care (01) ==
LOC: BHIOP 08:09
PROVIDERS: Visit Provider Psychiatry & Neurology Psychiatry
DX: F31.81 Bipolar II disorder (principal); F41.1 Generalized anxiety disorder; F45.22 Body dysmorphic disorder
CPT/HCPCS: S9480; 90832; 90853

== ENCOUNTER 2022-06-07 14:04 | Outpatient (RCR) | payer OTHER, SELFPAY ==
--- NOTE | 2022-06-07 14:00 | BH.SGPN.GN ---
Behaviors/Verbalizations/Mental Status: []Pt alert and oriented, casually dressed. Eye contact fair to good. Motor activity appropriate. Speech within normal limits. Affect congruent, mood euthymic. Thoughts linear, logical, no signs of hallucinations or delusions. Client Response/Progress/Benefit: []Pt responded well to session, engaged and providing input throughout. Pt checked in using aftercare worksheet and pt reports he did not see his therapist this week but has an appointment, he is working to get psychiatry scheduled, and pt has been taking medications. Pt has been using coping skills such as looking for new jobs and challenging his thoughts. Pt participated in the discussion of self-love and how one can increase this. Pt reported it is challenging to have self-love when you focus on past mistakes or failures, but this is something pt continues to work on challenging. Pt selected strategies to improve self-love and shared this week pt is going to focus on checking the evidence for his thoughts and paying attention to when he is using distortions in order to better challenge negative thinking patterns. Pt appeared to benefit from increasing skills to build self-love. Pt will continue IOP aftercare to further increase mood stability and promote gains made in IOP. Narrative Note: []
--- NOTE | 2022-06-07 14:05 | BH.COMM ---
Communication Note - Communication with Client Communication Note: Presented completed IOP and presents today to starting relapse prevention group which meets once weekly (1.5 hours) for 10 weeks. Case discussed with Dr. Villafana with plan to admit with dx of F31.81
--- NOTE | 2022-06-07 16:00 | BH.MTP ---
Master Treatment Plan - Patient Information Program Physician:: Dr. Natalia Villafana Primary Therapist:: Alban Rodrigues - Psychiatric Diagnoses Psychiatric Diagnoses:: 1. Bipolar 2 disorder (depression currently) F31.81. 2. Generalized anxiety disorder. 3. Body dysmorphic disorder Diagnosis Code(s):: f31.81 - Estimated LOS Estimated LOS (in weeks):: 8 Problem/Goal #1 - Problem/Goal #1 Stated Goal:: Client will maintain or see a reduction in symptoms AEB client scores on the DSM 5 cross-cutting measure and client's self-report Description of Barriers: Mental health stigma, long-standing anger mgmt issues, Hx of poor follow-up and self-advocacy, Functional Impact: Pt has been on FMLA due to mental health symptoms since 01/2022. - Objectives Objective #1 Stated Objective: Client will continue to consistently apply healthy coping skills to maintain progress made in IOP tx. Interventions: Through group therapy, client will review warning signs and triggers as well as healthy coping skills learned in IOP tx to successfully maintain gains while transitioning into outpatient therapy. Discharge Criteria: Client will have accomplished this goal when client's score on the DSM-5 cross-cutting measure has either maintained or reduced over a 8 week period. Target Date: 08/09/22 Review Date: 07/12/22 Objective #2 Stated Objective: Client will learn and utilize 2-3 maintenance strategies to prevent decompensation Interventions: Through group therapy, client will be provided with education on healthy maintenance behaviors, relapse prevention techniques, and healthy coping strategies Discharge Criteria: Client will have accomplished this goal when can report using at least 2 maintenance skills to prevent decompensation. Target Date: 08/09/22 Review Date: 07/12/22
--- NOTE | 2022-06-14 14:00 | BH.SGPN.GN ---
Behaviors/Verbalizations/Mental Status: []Pt alert and oriented, casually dressed and groomed. Eye contact good. Motor activity appropriate. Speech within normal limits. Affect flat, mood calm. Thoughts linear, logical, no signs of hallucinations or delusions. Client Response/Progress/Benefit: []Pt receptive of session, engaged throughout. Pt shared they have been taking their medications and maintaining appointments with her outpatient mental health providers. Pt reports using ?stepping back and analyzing? to cope with stressors and unhelpful urges. Receptive of discussion on sitting with the uncomfortable and emotional urges. Pt contributed to the discussion of distress tolerance including benefits and pt identified personal examples of what happens if their distress tolerance is low. Pt shared to improve distress tolerance, pt is going to work on purposefully driving slowly to help pt sit with the uncomfortable and develop patience. Pt seemed to benefit from support from peers and increasing understanding of distress tolerance. Will continue IOP aftercare to reinforce healthy coping skills and maintain gains. ? Narrative Note: []
== END 2022-06-27 23:59 ==
LOC: BHOG 14:04
PROVIDERS: Referring Provider Psychiatry & Neurology Psychiatry; Visit Provider Psychiatry & Neurology Psychiatry
DX: F31.81 Bipolar II disorder (principal)
CPT/HCPCS: 90853

== ENCOUNTER 2022-06-28 08:18 | Outpatient (RCR) | payer OTHER, SELFPAY ==
--- NOTE | 2022-06-28 14:00 | BH.SGPN.GN ---
Behaviors/Verbalizations/Mental Status: []Client alert and oriented, casually dressed and groomed. Eye contact fair. Motor activity appropriate. Speech within normal limits. Affect constricted, mood depressed and agitated. Thoughts linear, logical, no signs of hallucinations or delusions. Client Response/Progress/Benefit: []Receptive of session, reports feeling ?angry? today and believes he has been struggling to maintain the mental health gains made in IOP tx. Reports he has not been actively using healthy coping skills and appeared shutdown and withdrawn much of the session. Somewhat attentive during discussion of vulnerability and benefits of practicing vulnerability. Shared being vulnerable has not been easy for him as he views vulnerability as weakness and struggles with being open to the concept of healthy vulnerability. Group discussed ways we avoid feeling vulnerable and how this negatively affects mental health and relationships. Appeared to benefit from group support and discussion reflecting on the positive impact vulnerability can have on mental health. Declined to participate in homework portion of group, in which participants were challenged to identify one way in which they could practice being vulnerable in the next week. Will continue IOP aftercare to promote gains and reinforce healthy coping skills. Narrative Note: []
--- NOTE | 2022-07-05 14:00 | BH.SGPN.GN ---
Behaviors/Verbalizations/Mental Status: []Pt alert and oriented, casually dressed and groomed. Eye contact good. Motor activity appropriate. Speech within normal limits. Affect constricted, mood content. Thoughts linear, logical, no signs of hallucinations or delusions. Client Response/Progress/Benefit: []Pt responded well to session AEB sharing and listening attentively to others. Pt has been consistently seeing their outpatient mental health providers and taking medications consistently. Pt shared he has been using opposite action and engaging in hobbies, but he struggled to practice vulnerability last week. Pt participated in group discussion defining affirmations and why they are important. Pt provided insight throughout clinician?s presentation of tips for writing personal affirmations. Pt wrote own affirmations, including ?small progress is still progress.? Pt appeared to benefit from increased knowledge of affirmation writing and increased self-awareness. Will continue aftercare treatment to reinforce healthy coping skills and promote gains. ? Narrative Note: []
--- NOTE | 2022-07-12 16:00 | BH.MTP_ITS ---
Treatment Plan Review Date of Admission:: 06/07/22 Date of Treatment Plan Review:: 07/12/22 Admitting Diagnoses:: F31.81 Current Diagnoses:: F31.81 Patient's Response to Treatment:: Pt has consistently attended the aftercare program, however limited engagement. Apathetic and withdrawn at times. Attentive during psychoeducation, however has struggled to consistently apply healthy coping and relapse prevention skills. Appears to benefit from group support. Status of Current Problems and Symptoms: Pt has struggled without the structured and intense setting of IOP AEB by an increase in DSM-scores since his discharge from [facility]. Pt is getting closer to his pre-IOP DSM scores of (57) as his current scores are (53) indicating a increase in the anxiety, depression, and anger domain. Pt has not been able to consistently attend counseling sessions due to his counselor's lack of availability which may be a significant contributor to decompensation. Problem #1 Problem Name:: Maintenance Status of Goals:: Obj1- not complete. Pt is struggling to consistently apply healthy coping skills AEB symptom increase since discharging from [facility] level of care. obj2- Pt can identify maintain strategies however struggles with applying the skills. Team Recommendations:: Team will continue to provide psychoeducation and encourage patient to utilize skills. This therapist has had conversation with patient regarding pursuing an outpatient counselor with more availability as one session every 3-4 months is not appropriate for his level of need. Information and encouragement was given for setting up psychiatry appointment as he has not followed through with this either.
--- NOTE | 2022-07-26 14:00 | BH.SGPN.GN ---
Behaviors/Verbalizations/Mental Status: []Pt alert and oriented, neatly dressed and groomed. Eye contact good. Motor activity appropriate. Speech within normal limits. Affect flat, mood depressed. Thoughts linear, logical, no signs of hallucinations or delusions. Client Response/Progress/Benefit: []Pt receptive of session, engaged throughout. Pt reports he has not met with a therapist or psychiatrist this week, but he has been taking his medications more consistently. Pt has been lifting, reframing thoughts, and he practiced gratitude last week. Receptive of discussion on personal accountability and its importance in maintaining mental health stability. Pt worked cooperatively with group to identify benefits of maintaining personal accountability. Engaged in brainstorming strategies for improving ability to hold themselves accountable. Reported wanting to work on taking his afternoon pills more consistently and pt will do this by having visual cues in his house. Pt seemed to benefit from support from peers and increasing understanding of personal accountability benefits and strategies. Will continue IOP aftercare group to maintain gains and prevent decompensation. Narrative Note: []
== END 2022-07-28 23:59 ==
LOC: BHOG 08:18
PROVIDERS: Referring Provider Psychiatry & Neurology Psychiatry; Visit Provider Psychiatry & Neurology Psychiatry
DX: F31.81 Bipolar II disorder (principal)
CPT/HCPCS: 90853

== ENCOUNTER 2022-07-31 07:27 | Outpatient (RCR) | payer OTHER, SELFPAY ==
--- NOTE | 2022-08-02 14:00 | BH.SGPN.GN ---
Behaviors/Verbalizations/Mental Status: []Client alert and oriented, casual in appearance. Eye contact good.? Motor activity appropriate. Speech within normal limits. Affect congruent. Mood dysthymic. Thoughts linear, logical, no signs of hallucinations or delusions Client Response/Progress/Benefit: []Pt responded well to session AEB providing input throughout and listening attentively to others. Pt reported he has appointments scheduled with his outpatient counselor and psychiatrist later this month and is taking his medications as prescribed. Identified using thought challenging and reminding himself of his personal accountability goals to help with mental health maintenance over the past week. Noted successfully smoking less as a result. Pt connected with self-reflection discussion and activity. Worked with group to identify the benefits of self-reflection. Seemed to benefit from identifying how to incorporate self-reflection more consistently into daily living. Identified a self-reflection goal of beginning to track him mood daily. Pt to continue aftercare to maintain gains and prevent decompensation. Narrative Note: []
--- NOTE | 2022-08-16 14:00 | BH.SGPN.GN ---
Behaviors/Verbalizations/Mental Status: []Client alert and oriented, casually dressed and groomed. Eye contact good. Motor activity appropriate. Speech within normal limits. Affect congruent, mood anxious. Thoughts linear, logical, no signs of hallucinations or delusions. Client Response/Progress/Benefit: []Pt receptive of session, engaged throughout. Pt completed the aftercare self-reflection worksheet sharing they see their therapist in the next 2 weeks and psychiatrist today, they are taking medications as prescribed, and have been using the [employer] terrence, exercise, and music as healthy coping skills. Receptive of discussion on healthy habits and habit formation, as well its importance in maintaining mental health stability. Pt worked cooperatively with group to identify benefits of developing and maintaining healthy habits. Engaged in brainstorming strategies for identifying and changing unhealthy habit patterns. Reported he wants to work on challenging a current unhealthy habit of smoking when bored with doing something else hands on such as cleaning. Pt seemed to benefit from support from peers and increasing understanding of healthy habit formation benefits and strategies. Will d/c from aftercare today and continue outpatient tx to maintain gains and prevent decompensation. Narrative Note: []
--- NOTE | 2022-08-16 16:00 | BH.DS ---
Discharge Summary - Demographics Date of Admission:: 06/07/22 Discharge Date: 08/16/22 Presenting Problems at Admission:: Pt was successful discharge from [facility] on 06/01/23 and entered into aftercare to maintain gains and prevent decompensation. For more information regarding [facility] please refer to [facility] psychosocial assessment, psych eval, or [facility] discharge summary. Discharge Diagnoses:: Bipolar 2 disorder (depression currently) F31.81. 2. Generalized anxiety disorder. Reason for Discharge:: Completed Aftercare Program. No longer meets criteria to remain. - Treatment Progress During Treatment & Response: Pt struggled early on in the aftercare program (refer to tx plan review) however has shown improvement in the past 3 weeks. There were concerns as his DSM-5 scores on 07/11/22 where approaching his pre-admission IOP DSM-5 scores from 05-01- indicating that he was struggling to maintain gains accomplished in the IOP program. Pt's most recent DSM-5 scores from 08/09/22 indicate and overall 37% reduction from his pre-admission IOP scores and a 30% reduction from his DSM-5 scores from 07/11/22. Issues Still to be Addressed:: Maintenance, depression, anger mgmt, anxiety, and stress management. Pt remains on FMLA from work and has to make a decision regarding return very soon. Discharge Recommendations/Instructions:: Pt scheduled an appointment with outpatient psychiatrist ([facility]) next week and if he is comfortable he will obtain counseling from this agency in the future. He has had only one appointment with his current outpatient therapist since discharge from [facility], however is reluctant to change therapists. Discharge Handout: Complete Discharge Handout with client on aftercare options and continuity of care.
== END 2022-08-17 07:03 | disposition home or self-care (01) ==
LOC: BHOG 07:27
PROVIDERS: Referring Provider Psychiatry & Neurology Psychiatry; Visit Provider Psychiatry & Neurology Psychiatry
DX: F31.81 Bipolar II disorder (principal); F41.1 Generalized anxiety disorder
CPT/HCPCS: 90853

== ENCOUNTER → 2023-05-13 | Outpatient (REF) | payer SELFPAY ==
[2023-05-16 09:10] LABS: Cotinine Screen Blood 255.3 ng/mL (.); Nicotine Blood 8.6 ng/mL (.)
== END | disposition home or self-care (01) ==
LOC: LABSPEC 12:27
PROVIDERS: Referring Provider Registered Nurse; Visit Provider Registered Nurse
DX: Z00.00 Encounter for general adult medical examination without abnormal findings (principal)
CPT/HCPCS: 80323; G0480